=== PATIENT | female | born 1950 | race Hispanic/Latino ===

== ENCOUNTER → 2017-12-19 | Outpatient (CLI) | payer OTHER ==
[~2017-12-19] MED LIST: ACET-2247 PO; ALBU2.5V2 IH; AMLO5TAB2 PO; ASPI-1012 PO; ATOR10TA69 PO; BIMA12.5OS OU; CALC-866 PO; CELE200 PO; CITA-107 PO; FAMO20TA8 PO; FEXO-59 PO; FLUT16H NASAL; FLUT1BLS IH; GABA-529 PO; GUAI-1211 PO; INSU300I SQ; IPRA6S NASAL; MELA5TAB14 PO; MONT10TA24 PO; MULT-952 PO; OXYC5 PO; PIOG30TA70 PO; PRO AIR IH; REFRESH OU; TYLENOL PO; VALS1TAB79 PO; WHEA1POW2 PO
== END | disposition home or self-care (01) ==
LOC: RAH 08:48
PROVIDERS: ATTEND Family Medicine
DX: Z12.31 Encounter for screening mammogram for malignant neoplasm of breast (principal)
CPT/HCPCS: 77067

== ENCOUNTER → 2018-12-30 | Outpatient (CLI) | payer OTHER ==
[~2018-12-30] MED LIST changes: -AMLO5TAB2 PO; +AMLO5TAB9 PO
== END | disposition home or self-care (01) ==
LOC: RAH 10:37
PROVIDERS: ATTEND Family Medicine
DX: Z12.31 Encounter for screening mammogram for malignant neoplasm of breast (principal)
CPT/HCPCS: 77067

== ENCOUNTER 2019-03-23 11:51 | Observation (INO) | payer OTHER ==
[~2019-03-23] VITALS: Ht 154.9 cm; Wt 83.0 kg
[2019-03-23 03:15] VITALS: BP 117/51
[2019-03-23 12:26] LABS: EOSINOPHILS % (AUTO) 1.5 % (0.0-8.0); HEMATOCRIT 36.7 % (36-48); LYMPHOCYTES % (AUTO) 32.1 % (21.0-51.0); MEAN CORPUSCULAR HEMOGLOBIN 30.5 pg (27.0-33.0); MEAN CORPUSCULAR HGB CONC 34.2 g/dL (32.0-36.0); MEAN CORPUSCULAR VOLUME 89.2 fL (79-99); MONOCYTES % (AUTO) 11.4 % (3.0-13.0); NUCLEATED RED BLOOD CELLS 0.1 % (0.0-0.19); PLATELET COUNT (AUTO) 194 K/uL (130-400); RED BLOOD CELL COUNT(AUTO) 4.11 MIL/uL (4.00-5.50); RED CELL DISTRIBUTION WIDTH 13.5 % (11.0-15.5); WHITE BLOOD COUNT (AUTO) 5.8 K/uL (4.8-10.8)
[2019-03-23 12:33] LABS: CREATININE 1.2 mg/dL (0.5-1.5); POTASSIUM 4.2 mmol/L (3.5-5.1)
[2019-03-23 12:36] LABS: INR 1.03 (0.85-1.15); PARTIAL THROMBOPLASTIN TIME 30.8 SEC (26.3-35.5); PROTHROMBIN TIME 10.8 SEC (9.6-11.6)
[2019-03-23 12:37] LABS: ALBUMIN 3.6 g/dL (3.5-5.0); BILIRUBIN,TOTAL 0.4 mg/dL (0.2-1.0); TOTAL PROTEIN, SERUM 7.3 g/dL (6.0-8.3)
[2019-03-23] MEDS ORDERED: ASPIRIN 325 MG TABLET ONE (14:00)
[2019-03-23 16:00] VITALS: BP 130/56
[2019-03-23] MEDS ORDERED: PNEUMOCOCCAL VACCINE POLYVALENT 0.5 ML/VIAL [PPV] IM SCH (16:30)
[2019-03-23] MEDS ORDERED: BIMA2.5D4 OP (16:39)
[2019-03-23] MEDS ORDERED: AMLO5TAB9 PO (16:39)
[2019-03-23] MEDS ORDERED: ATOR10TA PO (16:39)
[2019-03-23] MEDS ORDERED: MONT10TA21 PO (16:39)
[2019-03-23] MEDS ORDERED: DULO30CA52 PO (16:39)
[2019-03-23] MEDS ORDERED: IRBE1TAB43 PO (16:39)
[2019-03-23] MEDS ORDERED: PIOG15TA66 PO (16:39)
[2019-03-23] MEDS ORDERED: INSU300I SQ (16:39)
[2019-03-23 17:40] LABS: APPEARANCE,URINE Clear (CLEAR); BILIRUBIN,URINE Negative (NEGATIVE); COLOR,URINE Yellow (YELLOW); GLUCOSE, URINE (UA) Negative (NEGATIVE); KETONES,URINE Negative (NEGATIVE); LEUKOCYTE ESTERASE ,URINE Trace (NEGATIVE); NITRATE,URINE Negative (NEGATIVE); OCCULT BLOOD,URINE Negative (NEGATIVE); PH,URINE 7.5 (5.0-8.0); PROTEIN,URINE Negative (NEGATIVE)
[2019-03-23 17:47] LABS: AMPHET/METH SCREEN,URINE NEGATIVE (NEGATIVE); BARBITURATE SCREEN, URINE NEGATIVE (NEGATIVE); BENZODIAZEPINES SCREEN,URINE NEGATIVE (NEGATIVE); CANNABINOID SCREEN,URINE NEGATIVE (NEGATIVE); COCAINE SCREEN,URINE NEGATIVE (NEGATIVE); OPIATE SCREEN,URINE NEGATIVE (NEGATIVE); PHENCYCLIDINE SCREEN,URINE NEGATIVE (NEGATIVE)
[2019-03-23 17:56] LABS: BACTERIA,URINE None Seen /HPF (None Seen); RBC,URINE None Seen /HPF (0-1); SQUAMOUS EPITHELIAL CELL,UR 0-2 /HPF (0-2); WBC,URINE 0-1 /HPF (0-1)
[2019-03-23 19:15] VITALS: BP 128/62
[2019-03-23] MEDS ORDERED: ACETAMINOPHEN 325 MG TAB PO PRN (20:30)
[2019-03-23] MEDS ORDERED: HYDROCODONE/ACETAMINOPHEN 5/325 MG TAB PO PRN (20:30)
[2019-03-23] MEDS ORDERED: MORPHINE SULFATE 2 MG/ML 1ML SYG IVP PRN (20:30)
[2019-03-23] MEDS ORDERED: HYDRALAZINE HCL 20 MG/ML VIAL IV PRN (20:45)
[2019-03-23] MEDS ORDERED: ONDANSETRON HCL 4 MG/2 ML VIAL IVP PRN (20:45)
[2019-03-23] MEDS: SODIUM CHLORIDE 0.9% 1000ML 1,000 ML IV SCH (21:00)
[2019-03-23] MEDS: ATORVASTATIN CALCIUM 40 MG TABLET PO SCH (21:04)
[2019-03-23 23:15] VITALS: BP 117/51
[2019-03-24 03:00] VITALS: BP 122/47
[2019-03-24 06:34] LABS: BASOPHILS % (AUTO) 0.7 % (0.0-5.0); EOSINOPHILS % (AUTO) 2.5 % (0.0-8.0); HEMATOCRIT 35.2 % (36-48); LYMPHOCYTES % (AUTO) 27.7 % (21.0-51.0); MEAN CORPUSCULAR HEMOGLOBIN 30.7 pg (27.0-33.0); MEAN CORPUSCULAR HGB CONC 34.5 g/dL (32.0-36.0); MONOCYTES % (AUTO) 13.6 % (3.0-13.0); NEUTROPHILS % (AUTO) 55.5 % (40.0-77.0); NUCLEATED RED BLOOD CELLS 0.1 % (0.0-0.19); PLATELET COUNT (AUTO) 199 K/uL (130-400); RED BLOOD CELL COUNT(AUTO) 3.95 MIL/uL (4.00-5.50); RED CELL DISTRIBUTION WIDTH 13.6 % (11.0-15.5); WHITE BLOOD COUNT (AUTO) 5.9 K/uL (4.8-10.8)
[2019-03-24] MEDS: PANTOPRAZOLE SODIUM 40 MG TABLET.DR PO SCH (06:34)
[2019-03-24 06:49] LABS: CREATININE 0.8 mg/dL (0.5-1.5); POTASSIUM 3.8 mmol/L (3.5-5.1)
[2019-03-24 07:25] LABS: HEMOGLOBIN A1C 6.5 % (4.0-6.0)
[2019-03-24 08:00] VITALS: BP 135/65
[2019-03-24] MEDS: ENOXAPARIN SODIUM 40 MG/0.4 ML SYRINGE SQ SCH (09:36)
[2019-03-24] MEDS: ASPIRIN 81 MG EC TAB PO SCH (09:36)
[2019-03-24] MEDS: SODIUM CHLORIDE 0.9% 1000ML 1,000 ML IV SCH ×2 (09:50→22:24)
--- NOTE | 2019-03-24 11:15 | NUR ---
COGNITIVE-LINGUISTIC EVALUATION COMPLETED. WITHIN FUNCTIONAL LIMITS. EVALUATION: Pt AAOX3. Pt REQUESTS WANTS AND NEEDS INDEPENDENTLY. Pt INTELLIGIBLE AT 100% ACCURACY TO THE UNFAMILIAR LISTENER. Pt COMMUNICATING AT CONVERSATIONAL LEVEL WITH NO DEFICITS IDENTIFIED AT THIS TIME. Pt COMPLETED COGNITIVE-LINGUISTIC EVALUATION TARGETING: ORIENTATION, ATTENTION/CONCENTRATION, MEMORY (IMMEDIATE, SHORT-TERM AND LONG-TERM), PROBLEM SOLVING, LOGIC/REASONING/INFERENCE, THOUGHT ORGANIZATION, FUNCTIONAL MATH AND TELLING TIME. Pt ABLE TO COMPLETE TASKS WITH CORRECT AND TIMELY ANSWERS TO ALL SECTIONS. G-CODES MOTOR SPEECH: [id number] Addendum: 03/24/19 at 1233 by SONJA ALEMAN [facility] Amended: Links added.
--- NOTE | 2019-03-24 11:25 | NUR ---
DYSPHAGIA EVAL COMPLETED. -S/S OF ASPIRATION. RECOMMEND REGULAR TEXTURE, THIN LIQUIDS. Addendum: 03/24/19 at 1238 by SONJA ALEMAN, [facility] Amended: Links added.
[2019-03-24 12:00] VITALS: BP_SYST 142; BP_SYST 94; BP_DIAS 58; BP_DIAS 66
[2019-03-24 16:00] VITALS: BP 135/60
--- NOTE | 2019-03-24 17:24 | NUR ---
cm note met with patient and states resides athome with daughter, independent and active at home. no dme. dc plan is back to home at time of dc. states no dc needs. Addendum: 03/24/19 at 1727 by DELMIS KIM CM Amended: Links added.
[2019-03-24 19:16] VITALS: BP 138/61
[2019-03-24] MEDS: ATORVASTATIN CALCIUM 40 MG TABLET PO SCH (20:26)
[2019-03-25 00:08] VITALS: BP 132/59
[2019-03-25 04:30] VITALS: BP 126/60
[2019-03-25] MEDS: PANTOPRAZOLE SODIUM 40 MG TABLET.DR PO SCH (07:37)
[2019-03-25 08:00] VITALS: BP 124/57
[2019-03-25] MEDS: ASPIRIN 81 MG EC TAB PO SCH (09:03)
[2019-03-25] MEDS: ENOXAPARIN SODIUM 40 MG/0.4 ML SYRINGE SQ SCH (09:04)
[2019-03-25] MEDS ORDERED: ASPI-1197 PO (10:44)
--- NOTE | 2019-03-25 11:39 | NUR ---
Discharge Patient given discharge instructions, appointment dates. Verbalized understanding, and teachback was done. IV removed patient tolerated well.
--- NOTE | 2019-03-25 11:49 | NUR ---
Discharge Patient left via wheelchair stable @ time of discharge.
== END 2019-03-25 11:49 | disposition home or self-care (01) ==
LOC: EDH 11:51 → EDHIP 11:52 → 3AH 16:05
PROVIDERS: ADMIT Internal Medicine Critical Care Medicine; ATTEND Internal Medicine Critical Care Medicine
DX: G45.9 Transient cerebral ischemic attack, unspecified (principal); E11.9 Type 2 diabetes mellitus without complications; K21.9 Gastro-esophageal reflux disease without esophagitis; R29.702 NIHSS score 2; Z82.0 Family history of epilepsy and other diseases of the nervous system; Z82.49 Family history of ischemic heart disease and other diseases of the circulatory system; Z83.3 Family history of diabetes mellitus; Z79.899 Other long term (current) drug therapy; Z23 Encounter for immunization
CPT/HCPCS: 36415 ×2; 70450; 70544; 70547; 70551; 71045; 80048; 80053; 80061; 80305; 81001; 82550; 82948 ×8; 83036; 83721; 84484; 85025 ×2; 85610; 85730; 90732; 92522; 92610; 93005; 96372 ×2; 99291; A4600; G0009; G0378 ×44; J1650 ×2

== ENCOUNTER → 2019-05-09 | Outpatient (CLI) | payer OTHER ==
[~2019-05-09] VITALS: Ht 154.9 cm; Wt 81.2 kg
[~2019-05-09] MED LIST changes: -ACET-2247 PO; -ALBU2.5V2 IH; -ASPI-1012 PO; +ASPI-1197 PO; +ATOR10TA PO; -ATOR10TA69 PO; -BIMA12.5OS OU; +BIMA2.5D4 OP; -CALC-866 PO; -CELE200 PO; -CITA-107 PO; +DULO30CA52 PO; -FAMO20TA8 PO; -FEXO-59 PO; -FLUT16H NASAL; -FLUT1BLS IH; -GABA-529 PO; -GUAI-1211 PO; -IPRA6S NASAL; +IRBE1TAB43 PO; -MELA5TAB14 PO; +MONT10TA21 PO; -MONT10TA24 PO; -MULT-952 PO; -OXYC5 PO; +PIOG15TA66 PO; -PIOG30TA70 PO; -PRO AIR IH; -REFRESH OU; +REGADENOSON 0.4 MG/5 ML PF SYG IVP SCH; -TYLENOL PO; -VALS1TAB79 PO; -WHEA1POW2 PO
== END | disposition home or self-care (01) ==
LOC: SHCH 08:09
PROVIDERS: ATTEND Internal Medicine Cardiovascular Disease
DX: G45.9 Transient cerebral ischemic attack, unspecified (principal); I10 Essential (primary) hypertension; R06.00 Dyspnea, unspecified
CPT/HCPCS: 78452; 93017; 96374; A9500 ×2; J2785

== ENCOUNTER → 2019-05-22 | Outpatient (CLI) | payer OTHER ==
[~2019-05-22] MED LIST changes: -REGADENOSON 0.4 MG/5 ML PF SYG IVP SCH
== END | disposition home or self-care (01) ==
LOC: RAH 09:33
PROVIDERS: ATTEND Internal Medicine Cardiovascular Disease
DX: G45.9 Transient cerebral ischemic attack, unspecified (principal)
CPT/HCPCS: C8929

== ENCOUNTER 2019-09-08 06:54 | Day surgery (SDC) | payer OTHER ==
[2019-09-04 09:05] VITALS: BP 137/71
[2019-09-04 09:07] LABS: CREATININE 1.1 mg/dL (0.5-1.5); POTASSIUM 4.1 mmol/L (3.5-5.1)
--- NOTE | 2019-09-04 09:35 | NUR ---
SPOKE WITH DR. KHALIL WHO WILL BE THE DR. ON 09-08 IN (IR) OK FOR PT. TO TAKE ASA FOR TIA'S. ALSO SPOKE WITH OFFICE PROCEDURE TO BE DONE IN IR. /DAY PT.
[2019-09-04 14:15] LABS: BASOPHILS % (AUTO) 0.7 % (0.0-5.0); EOSINOPHILS % (AUTO) 2.5 % (0.0-8.0); HEMATOCRIT 35.3 % (36-48); LYMPHOCYTES % (AUTO) 30.2 % (21.0-51.0); MEAN CORPUSCULAR HEMOGLOBIN 28.5 pg (27.0-33.0); MEAN CORPUSCULAR HGB CONC 31.7 g/dL (32.0-36.0); MEAN CORPUSCULAR VOLUME 89.8 fL (79-99); MONOCYTES % (AUTO) 8.8 % (3.0-13.0); NEUTROPHILS % (AUTO) 57.6 % (40.0-77.0); PLATELET COUNT (AUTO) 432 K/uL (130-400); RED BLOOD CELL COUNT(AUTO) 3.93 MIL/uL (4.00-5.50); RED CELL DISTRIBUTION WIDTH 13.6 % (11.0-15.5)
[2019-09-04 14:18] LABS: INR 1.08 (0.85-1.15); PARTIAL THROMBOPLASTIN TIME 29.9 SEC (26.3-35.5); PROTHROMBIN TIME 11.3 SEC (9.6-11.6)
[~2019-09-08] VITALS: Ht 152.4 cm; Wt 62.1 kg
[~2019-09-08 06:54] MED LIST changes: +ACET-2113 PO; +ACET-2123 PO; +ALEN70TA2 PO; +CALC-724 PO; +CARB15DR OU; +CHOL500062 PO; +FAMO20TA8 PO; +FOLI-103 PO; +POLY17PO4 PO
[2019-09-08 07:25] VITALS: BP 138/63
[2019-09-08] MEDS ORDERED: SODIUM CHLORIDE 0.9% 1000ML 1,000 ML IV ONE (07:33)
[2019-09-08] MEDS ORDERED: LIDOCAINE HCL 1% MDV 50ML VIAL ONE (08:52)
[2019-09-08] MEDS ORDERED: IODIXANOL 320 MG/ML 100 ML VIAL ONE (08:52)
--- NOTE | 2019-09-08 09:05 | NUR ---
PROCEDURE PT TAKEN TO TABLE GAMES DUAL RATE SUPERVISOR FOR SCHEDULED PROCEDURE ABSCESSOGRAM , DAUGHTER AT BEDSIDE
[2019-09-08 10:00] VITALS: BP 134/57
--- NOTE | 2019-09-08 10:00 | NUR ---
POST RECEIVED PT BACK FROM LENDING ADVISOR S/P ABSCESSOGRAM PERCUTANEOUS MAKENZIE TUBE EXCHANGE TO RIGHT LATERAL SIDE OF ABDOMEN . ACCORDIAN DRAIN. DRAIN DRAINING YELLOWISH DRAINAGE. DRESSING TO SITE DRY AND INTACT, PT AWAKE AND ALERT IN BED,NO DISTRESS NOTED. PT DENIED ANY PAIN OR DISCOMFORTS. VS STABLE ON ARRIVAL.
[2019-09-08 10:15] VITALS: BP 132/57
[2019-09-08 10:30] VITALS: BP 136/60
--- NOTE | 2019-09-08 10:35 | NUR ---
DC DC INSTRUCTIONS GIVEN TO PTS DAUGHTER , INSTRUCTED TO F/U WITH DR. TROTTER, ON INFECTION CONTROL AND HOW TO MANAGE PERCUTANEOUS DRAIN MAKENZIE DRAIN ACCORDIAN DRAIN. PT HAD IT BEFORE. BOTH VERBALIZED UNDERSTANDING. DRAIN IN PLACE. DRESSING DRY AND INTACT
--- NOTE | 2019-09-08 11:17 | NUR ---
dc pt dc home via wc,no distress noted. pt denied any pain or discomforts. pt accompanied by daughter percutaneous gabriel tube catheter accordian drain in place with dressing dry and intact, draining yellow drainage.
== END 2019-09-08 11:17 | disposition home or self-care (01) ==
LOC: DAH 06:54
PROVIDERS: ATTEND Surgery
DX: K81.0 Acute cholecystitis (principal); I10 Essential (primary) hypertension; E11.9 Type 2 diabetes mellitus without complications; M19.90 Unspecified osteoarthritis, unspecified site; E78.00 Pure hypercholesterolemia, unspecified; M81.0 Age-related osteoporosis without current pathological fracture; F32.9 Major depressive disorder, single episode, unspecified; Z79.899 Other long term (current) drug therapy; Z79.2 Long term (current) use of antibiotics; Z98.51 Tubal ligation status; Z90.49 Acquired absence of other specified parts of digestive tract; Z96.652 Presence of left artificial knee joint; Z86.73 Personal history of transient ischemic attack (TIA), and cerebral infarction without residual deficits; Z79.82 Long term (current) use of aspirin; Z79.4 Long term (current) use of insulin; Z87.891 Personal history of nicotine dependence; Z82.49 Family history of ischemic heart disease and other diseases of the circulatory system; Z83.3 Family history of diabetes mellitus; Z79.01 Long term (current) use of anticoagulants
CPT/HCPCS: 36415; 47536; 80048; 82948 ×2; 85025; 85610; 85730; A4215; A4216; A4221; A4222; A4223 ×3; A4606; A4663; A6260; C1729; C1769; J1644; J3490; J7030; Q9967

== ENCOUNTER 2019-10-17 08:52 | Day surgery (SDC) | payer OTHER ==
[2019-10-15 11:34] LABS: BASOPHILS % (AUTO) 0.8 % (0.0-5.0); EOSINOPHILS % (AUTO) 2.9 % (0.0-8.0); HEMATOCRIT 35.2 % (36-48); LYMPHOCYTES % (AUTO) 34.6 % (21.0-51.0); MEAN CORPUSCULAR HEMOGLOBIN 28.3 pg (27.0-33.0); MEAN CORPUSCULAR HGB CONC 31.8 g/dL (32.0-36.0); MEAN CORPUSCULAR VOLUME 88.9 fL (79-99); MONOCYTES % (AUTO) 10.9 % (3.0-13.0); NEUTROPHILS % (AUTO) 50.6 % (40.0-77.0); PLATELET COUNT (AUTO) 299 K/uL (130-400); RED BLOOD CELL COUNT(AUTO) 3.96 MIL/uL (4.00-5.50); WHITE BLOOD COUNT (AUTO) 5.2 K/uL (4.8-10.8)
[2019-10-15 11:35] VITALS: BP 137/52
[2019-10-15 11:48] LABS: INR 1.05 (0.85-1.15); PARTIAL THROMBOPLASTIN TIME 29.6 SEC (26.3-35.5)
[~2019-10-17] VITALS: Ht 152.4 cm; Wt 76.2 kg
[2019-10-17] MEDS ORDERED: IODIXANOL 320 MG/ML 100 ML VIAL ONE (11:40)
[2019-10-17] MEDS ORDERED: LIDOCAINE HCL 1% MDV 50ML VIAL ONE (11:40)
== END 2019-10-17 12:44 | disposition home or self-care (01) ==
LOC: DAH 08:52
PROVIDERS: ATTEND Surgery
DX: K81.0 Acute cholecystitis (principal); M19.90 Unspecified osteoarthritis, unspecified site; E11.9 Type 2 diabetes mellitus without complications; E78.00 Pure hypercholesterolemia, unspecified; I10 Essential (primary) hypertension; M81.0 Age-related osteoporosis without current pathological fracture; Z79.01 Long term (current) use of anticoagulants; Z79.899 Other long term (current) drug therapy; Z86.73 Personal history of transient ischemic attack (TIA), and cerebral infarction without residual deficits
CPT/HCPCS: 36415; 47537; 82948; 85025; 85610; 85730; A4215; A4216; A4221; A4222; A4223 ×3; A4606; A4663; Q9967; J1644; J3490

== ENCOUNTER → 2020-01-26 | Outpatient (CLI) | payer OTHER | END | disposition home or self-care (01) | LOC: RAH 10:08 | PROVIDERS: ATTEND Family Medicine | DX: Z12.31 Encounter for screening mammogram for malignant neoplasm of breast (principal) ==

== ENCOUNTER → 2021-10-13 | Outpatient (CLI) | payer OTHER ==
[~2021-10-13] MED LIST changes: +AMLO-257 PO; -AMLO5TAB9 PO; +CALC-1158 PO; -CALC-724 PO
== END | disposition home or self-care (01) ==
LOC: RAH 11:16
PROVIDERS: ATTEND Family Medicine
DX: E04.1 Nontoxic single thyroid nodule (principal)
CPT/HCPCS: 76536

== ENCOUNTER → 2023-02-02 | Outpatient (CLI) | payer OTHER ==
[~2023-02-02] MED LIST changes: -ALEN70TA2 PO; +ALEN70TA85 PO; +MONT-47 PO; -MONT10TA21 PO
== END | disposition home or self-care (01) ==
LOC: RAH 09:30
PROVIDERS: ATTEND Family Medicine
DX: Z12.31 Encounter for screening mammogram for malignant neoplasm of breast (principal)
CPT/HCPCS: 77067

== ENCOUNTER → 2024-02-05 | Outpatient (CLI) | payer OTHER | END | disposition home or self-care (01) | LOC: RAH 10:40 | PROVIDERS: ATTEND Family Medicine | DX: Z12.31 Encounter for screening mammogram for malignant neoplasm of breast (principal) | CPT/HCPCS: 77067 ==

== ENCOUNTER → 2025-02-18 | Outpatient (CLI) | payer OTHER ==
[~2025-02-18] MED LIST changes: -ACET-2113 PO; +ACET-3305 PO
== END | disposition home or self-care (01) ==
LOC: RAH 10:26
PROVIDERS: ATTEND Family Medicine
DX: Z12.31 Encounter for screening mammogram for malignant neoplasm of breast (principal)
CPT/HCPCS: 77067